=== PATIENT | female | born 1980 | race Caucasian/White ===

== ENCOUNTER 2020-09-25 16:29 | Emergency (ER) | payer BC ==
[~2020-09-25] VITALS: Ht 154.9 cm; Wt 42.1 kg
[2020-09-25 16:45] VITALS: BP 117/87
[2020-09-25] MEDS ORDERED: LIDOcaine 1% W/epiNEPHrine 1:200,000 10ml vial IJ ONE (18:55)
[2020-09-25] MEDS ORDERED: CEPH250T PO (19:23)
[2020-09-25] MEDS ORDERED: acetaminophen 325mg tablet PO ONE (19:25)
== END 2020-09-25 19:40 | disposition home or self-care (01) ==
LOC: ER 16:31
DX: S01.81XA Laceration without foreign body of other part of head, initial encounter (principal); Z79.2 Long term (current) use of antibiotics; W19.XXXA Unspecified fall, initial encounter; Y93.89 Activity, other specified; Y92.89 Other specified places as the place of occurrence of the external cause; Y99.8 Other external cause status
CPT/HCPCS: 12011; 99283